=== PATIENT | male | born 1960 | race Caucasian/White ===

== ENCOUNTER → 2017-03-25 | Outpatient (CLI) | payer BC ==
[2013-10-06 06:16] VITALS: BP 137/84
[~2017-03-25] MED LIST: Aspirin PO; LISI2.5T PO; Metoprolol Tartrate PO; PRED-220 PO; PRED20TA PO
--- NOTE | 2017-03-25 14:10 | KCIC ---
Indication: COPD and shortness of air with right clavicle fracture. Time of exam 1:40 PM No prior studies are available for comparison. The heart size is normal. There is a calcified granuloma in the left lower lobe. Otherwise the lungs are clear. No effusion or pneumothorax is seen. IMPRESSION: No acute cardiopulmonary process is detected. Electronically signed by: Jorge Yousif MD (03/25/2017 2:07 PM) [id number]
--- NOTE | 2017-03-25 14:11 | KCIC ---
Indication: COPD and shortness of air. Time of exam 1:42 PM 2 views right clavicle demonstrate normal acromioclavicular alignment. There are hypertrophic changes at the acromioclavicular joint consistent with degenerative change. No fracture is identified. IMPRESSION: Degenerative changes. No acute bony abnormality is detected. Electronically signed by: Jorge Yousif MD (03/25/2017 2:08 PM) [id number]
== END | disposition home or self-care (01) ==
LOC: KCIC 13:19
PROVIDERS: ATTEND Family Medicine
DX: S42.001A Fracture of unspecified part of right clavicle, initial encounter for closed fracture (principal); J44.9 Chronic obstructive pulmonary disease, unspecified; M19.011 Primary osteoarthritis, right shoulder; J84.10 Pulmonary fibrosis, unspecified; X58.XXXA Exposure to other specified factors, initial encounter; Y93.89 Activity, other specified; Y92.89 Other specified places as the place of occurrence of the external cause; Y99.8 Other external cause status
CPT/HCPCS: 71020; 73000

== ENCOUNTER → 2020-06-30 | Outpatient (CLI) | payer MEDICARE ==
[2020-05-21 14:12] VITALS: BP 114/74
[~2020-06-30] MED LIST changes: +AZIT1PAC PO; +METF500T16 PO; +METH4TAB2 PO; +SIMV20TA18 PO
--- NOTE | 2020-06-30 17:07 | CARD ---
MR#: [id number] Date of Study: 06/30/2020 Ordering Physician: ROMULO CRUZ, Referring Physician: ROMULO CRUZ, Tech: Radha Elias [facility] APPROVED REPORT EXAM: Two-dimensional and M-mode echocardiogram with Doppler and color Doppler. Other Information Quality : AverageHR: 81bpm Rhythm : NSR INDICATION COPD RISK FACTORS Hypertension Obesity Smoking 2D DIMENSIONS RVDd3.6 (2.9-3.5cm)Left Atrium(2D)2.6 (1.6-4.0cm) IVSd1.2 (0.7-1.1cm)Aortic Root(2D)3.8 (2.0-3.7cm) LVDd3.1 (3.9-5.9cm)LVOT Diameter2.5 (1.8-2.4cm) PWd1.2 (0.7-1.1cm)LVDs1.7 (2.5-4.0cm) FS (%) 43.8 %SV28.5 ml Aortic Valve AoV Peak Jostin.162.5cm/sAoV VTI25.4cm AO Peak GR.10.6mmHgLVOT Peak Jostin.164.8cm/s AO Mean GR.5mmHgAVA (VMAX)4.81cm2 Mitral Valve MV E Qldlujkf84.6cm/sMV DECEL [id number] MV A Wvcjsake48.1cm/sE/A Ratio0.8 LEFT VENTRICLE The left ventricle is normal size. There is borderline to mild concentric left ventricular hypertroph y. The left ventricular systolic function is normal and the ejection fraction is within normal range. Estimated ejection fraction 60-65%. There is normal LV segmental wall motion. Transmitral Doppler f low pattern is Grade I-abnormal relaxation pattern. RIGHT VENTRICLE The right ventricle is normal size. The right ventricle is mildly hypertrophied. The right ventricula r systolic function is normal. ATRIA The left atrium size is normal. The right atrium size is normal. The interatrial septum is intact wit h no evidence for an atrial septal defect or patent foramen ovale as noted on 2-D or Doppler imaging. AORTIC VALVE The aortic valve is normal in structure and function. Doppler and Color Flow revealed no significant aortic regurgitation. There is no significant aortic valvular stenosis. MITRAL VALVE The mitral valve is normal in structure and function. There is no evidence of mitral valve prolapse. There is no mitral valve stenosis. Doppler and Color Flow revealed trace mitral valve regurgitation. TRICUSPID VALVE The tricuspid valve is normal in structure and function. Doppler and Color Flow revealed no tricuspid valve regurgitation noted. There is no tricuspid valve stenosis. PULMONIC VALVE The pulmonary valve is normal in structure and function. Doppler and Color Flow revealed no pulmonic valvular regurgitation. GREAT VESSELS The aortic root is mildly enlarged. The ascending aorta is mildly dilated. The IVC is normal in size and collapses >50% with inspiration. PERICARDIAL EFFUSION There is no evidence of significant pericardial effusion. Critical Notification Critical Value: No <Conclusion> The left ventricle is normal size. The left ventricular systolic function is normal and the ejection fraction is within normal range. Estimated ejection fraction 60-65%. There is borderline to mild concentric left ventricular hypertrophy. Doppler and Color Flow revealed no significant aortic regurgitation. There is no significant aortic valvular stenosis. Doppler and Color Flow revealed trace mitral valve regurgitation. Doppler and Color Flow revealed no tricuspid valve regurgitation noted. The aortic root is mildly enlarged. Signed by : Romulo Cruz MD Electronically Approved : 06/30/2020 17:07:19
== END ==
LOC: ECHO 13:47
PROVIDERS: ATTEND Internal Medicine Cardiovascular Disease
DX: I51.7 Cardiomegaly (principal); B94.8 Sequelae of other specified infectious and parasitic diseases
CPT/HCPCS: 93306

== ENCOUNTER → 2020-09-26 | Outpatient (CLI) | payer MEDICARE ==
[2020-05-21 14:12] VITALS: BP 114/74
--- NOTE | 2020-09-26 10:35 | RAD ---
EXAMINATION: CT Chest Without IV contrast. INDICATION:59 years, Male, nodular infiltrates. COMPARISON: 05/18/2020. TECHNIQUE: Spiral CT was obtained from the jugular notch through the posterior costophrenic recess. 3 -D MIPS, sagittal and coronal reformats were obtained. Exposure: One or more of the following individualized dose reduction techniques were utilized for thi s examination: 1. Automated exposure control 2. Adjustment of the mA and/or kV according to patient size 3. Use of iterative reconstruction technique. FINDINGS: LUNGS/PLEURA: Central airways are patent. Moderate to severe centrilobular and paraseptal emphysema, particularly in the upper lobes. Similar irregular nodular opacity in the lingula. Subsegmental atele ctasis versus scarring in the right middle lobe. No focal consolidation. No pneumothorax or pleural e ffusion. No suspicious pulmonary nodule. Calcified granuloma in the left lower lobe. MEDIASTINUM: No pathologic mediastinal or hilar adenopathy. Few calcified mediastinal and left hilar lymph nodes. The thoracic aorta and pulmonary arteries are normal in caliber. The heart is normal in size. No pericardial effusion. Moderate calcified coronary atherosclerosis. There is a 0.9 cm hypoden se nodule in the right thyroid lobe. Diffuse esophageal wall thickening may relate to reflux esophagi tis. Additional, nodular wall thickening of the posterior mid thoracic esophagus at the level of aaron na measures approximately 1.0 cm in thickness. (Series 2 image 35). AXILLA/SOFT TISSUE: No supraclavicular or axillary adenopathy. Regional soft tissues are within harish l limits. UPPER ABDOMEN: Calcified granulomas in the spleen and liver. BONES: No evidence of acute fractures or aggressive osseous lesions. Similar mild chronic compression fracture of T12 vertebral body. Mild degenerative changes in the spine. IMPRESSION: 1. Unchanged irregular nodular opacity in the lingula, favors to represent scarring. No suspicious pu lmonary nodule. 2. Moderate to severe pulmonary emphysema. 3. Diffuse esophageal wall thickening, may relate to reflux esophagitis. Additional, nodular wall thi ckening of the posterior mid thoracic esophagus at the level of the mindy, indeterminate. Differenti al includes atypical fold, Leiomyoma or malignancy. Recommend further evaluation with upper GI endosc opy. Electronically signed by: Maninder Rico MD (09/26/2020 10:33 AM) [id number]
== END ==
LOC: CT 09:32
PROVIDERS: ATTEND Internal Medicine Pulmonary Disease
DX: J43.9 Emphysema, unspecified (principal)
CPT/HCPCS: 71250

== ENCOUNTER 2021-04-09 09:34 | Emergency (ER) | payer MEDICARE ==
[~2021-04-09] VITALS: Ht 170.2 cm; Wt 105.4 kg
[~2021-04-09 09:34] MED LIST changes: -LISI2.5T PO; +LISI2.5T12 PO
[2021-04-09] MEDS ORDERED: IPRATRPIUM/ALBUTEROL 0.5/2.5MG 3 ML NEBU. NEB ONE (10:00)
[2021-04-09 10:03] LABS: BASO % 1 % (0-3); EOS # 0.4 x10^3/uL (0.0-0.7); EOS % 5 % (0-3); HEMATOCRIT 43.6 % (39.0-53.0); HEMOGLOBIN 14.4 g/dL (13.0-17.5); LYMPH # 1.2 x10^3/uL (1.0-4.8); LYMPH % 19 % (24-48); MEAN CORPUSCULAR HEMOGLOBIN 32 pg (25-35); MEAN CORPUSCULAR HGB CONC 33 g/dL (31-37); MEAN CORPUSCULAR VOLUME 98 fL (79-100); MONO # 0.7 x10^3/uL (0.0-1.1); MONO % 10 % (0-9); NEUT # 4.3 x10^3/uL (1.8-7.7); NEUT % 65 % (31-73); PLATELET COUNT 204 x10^3/uL (140-400); RED BLOOD COUNT 4.46 x10^6/uL (4.30-5.70); RED CELL DISTRIBUTION WIDTH 14.3 % (11.5-14.5); WHITE BLOOD COUNT 6.5 x10^3/uL (4.0-11.0)
--- NOTE | 2021-04-09 10:13 | PHYS DOC ---
Past Medical History Past Medical History: CHF, COPD, Diabetes-Type II, Hypertension Past Surgical History: No Surgical History Smoking Status: Former Smoker Additional Information: quit smoking 2013 Alcohol Use: None Drug Use: None General Adult EDM: Chief Complaint: SHORTNESS OF BREATH HPI: HPI: Patient is a 60-year-old male presents to the emergency department via EMS with chief complaint of cough and shortness of breath over the past 3 days. Patient reports his main concern is a family member in his home is tested positive for the flu virus, he has not had a flu vaccine this year and worried she may have the flu. Patient denies fever or chills. Denies chest pains. Reports cough is nonproductive, denies nausea vomiting or diarrhea. Patient denies nasal mary estion. Patient denies dizziness or syncopal episodes. Patient does report using his albuterol MDI more often over the past 3 days that he usually does. Patient reports he is always short of breath and is unable to articulate their concern if he is more short of breath than usual. Patient is on 2 L of oxygen per nasal cannula at all times at home, EMS spray painter noted sat of 88% on scene and increased O2 administration to 4 L per nasal cannula. Patient reports 28-year-old having the Covid virus in April of this year however has been vaccinated since then. Patient denies other physical complaints or physical concerns. Patient reports history of cigarette smoking, quit in 2013 Review of Systems: Review of Systems: 14 body systems of review of systems have been reviewed. See HPI for pertinent positives and negative responses, otherwise all other systems are negative, nonpertinent or noncontributory. Constitutional: Negative except as outlined in HPI above. Skin: Negative except as outlined in HPI above. Eyes: Negative except as outlined in HPI above. HENT: Negative except as outlined in HPI above. Respiratory: Negative except as outlined in HPI above. Cardiovascular: Negative except as outlined in HPI above. GI: Negative except as outlined in HPI above. : Negative except as outlined in HPI above. Musculoskeletal: Negative except as outlined in HPI above. Integument: Negative except as outlined in HPI above. Neurologic: Negative except as outlined in HPI above. Endocrine: Negative except as outlined in HPI above. Lymphatic: Negative except as outlined in HPI above. Psychiatric: Negative except as outlined in HPI above. Heart Score: C/O Chest Pain: No Risk Factors: Risk Factors: DM, Current or recent (<one month) smoker, HTN, HLP, family history of CAD, obesity. Risk Scores: Score 0 - 3: 2.5% MACE over next 6 weeks - Discharge Home Score 4 - 6: 20.3% MACE over next 6 weeks - Admit for Clinical Observation Score 7 - 10: 72.7% MACE over next 6 weeks - Early Invasive Strategies Current Medications: Current Medications Medications (Trade) Dose Ordered Sig/Padmini Start Time Stop Time Status Last Admin Dose Admin Albuterol/ Ipratropium (Duoneb) 3 ml 1X ONCE 04/09/21 10:00 04/09/21 10:01 DC Allergies: Allergies: Allergies Coded Allergies Type Severity Reaction Last Updated Verified No Known Drug Allergies 04/09/21 No Physical Exam: PE: Constitutional: Well developed, well nourished, no acute distress, non-toxic appearance. 60-year-old male in no apparent distress. Currently on 4 L nasal cannula. HENT: Normocephalic, atraumatic. Oropharynx pink, moist, no deep tissue infectious process appreciated, bilateral TMs intact within normal limits, no lymphadenopathy of the head or neck appreciated, patient speaking in normal voice tones. Eyes: Conjunctiva normal, no discharge. Neck: Normal range of motion, no stridor. Cardiovascular: No cyanosis appreciated, distal cap refill less than 2 seconds. Lungs & Thorax: Patient is in no respiratory distress, no audible adventitious lung sounds appreciated. Lung sounds clear bilateral upper lobes, diminished lung sounds bilateral lower lobes per auscultation. Patient does have a bronchial vesicular sounds with cough. Abdomen: Nontender, no abnormalities noted. Skin: Warm, dry, no erythema, no rash. Back: No tenderness, no deformities. Extremities: No tenderness, no cyanosis, no clubbing, ROM intact, no edema. Neurologic: Alert and oriented X 3, normal motor function, normal sensory function, no focal deficits noted. Psychologic: Affect normal, judgement normal, mood normal. Current Patient Data: Labs: Laboratory Tests Test 04/09/21 09:40 04/09/21 09:50 White Blood Count 6.5 x10^3/uL Red Blood Count 4.46 x10^6/uL Hemoglobin 14.4 g/dL Hematocrit 43.6 % Mean Corpuscular Volume 98 fL Mean Corpuscular Hemoglobin 32 pg Mean Corpuscular Hemoglobin Concent 33 g/dL Red Cell Distribution Width 14.3 % Platelet Count 204 x10^3/uL Neutrophils (%) (Auto) 65 % Lymphocytes (%) (Auto) 19 % Monocytes (%) (Auto) 10 % Eosinophils (%) (Auto) 5 % Basophils (%) (Auto) 1 % Neutrophils # (Auto) 4.3 x10^3/uL Lymphocytes # (Auto) 1.2 x10^3/uL Monocytes # (Auto) 0.7 x10^3/uL Eosinophils # (Auto) 0.4 x10^3/uL Basophils # (Auto) 0.0 x10^3/uL D-Dimer (Michell) 0.41 ug/mlFEU Sodium Level 144 mmol/L Potassium Level 4.6 mmol/L Chloride Level 101 mmol/L Carbon Dioxide Level 38 mmol/L Anion Gap 5 Blood Urea Nitrogen 27 mg/dL Creatinine 1.4 mg/dL Estimated GFR (Cockcroft-Gault) 51.4 BUN/Creatinine Ratio 19 Glucose Level 133 mg/dL Lactic Acid Level 0.9 mmol/L Calcium Level 9.1 mg/dL Phosphorus Level 3.3 mg/dL Magnesium Level 1.8 mg/dL Total Bilirubin 0.2 mg/dL Aspartate Amino Transf (AST/SGOT) 25 U/L Alanine Aminotransferase (ALT/SGPT) 31 U/L Alkaline Phosphatase 74 U/L Troponin I High Sensitivity 14 ng/L HA-Joa-A-Type Natriuretic Peptide 43 pg/mL Total Protein 7.4 g/dL Albumin 3.2 g/dL Albumin/Globulin Ratio 0.8 Influenza Type A Antigen Negative Influenza Type B Antigen Negative SARS-CoV-2 Antigen (Rapid) Negative Current Medications Medications (Trade) Dose Ordered Sig/Padmini Route PRN Reason Start Time Stop Time Status Last Admin Dose Admin Albuterol/ Ipratropium (Duoneb) 3 ml 1X ONCE NEB 04/09/21 10:00 04/09/21 10:01 DC 04/09/21 10:19 Methylprednisolone Sodium Succinate (SOLU-Medrol 125MG VIAL) 125 mg 1X ONCE IV 04/09/21 10:45 04/09/21 10:46 DC 04/09/21 11:07 Albuterol Sulfate (Ventolin Neb Soln) 10 mg 1X ONCE CONT NEB 04/09/21 11:45 04/09/21 11:46 DC 04/09/21 11:49 Laboratory Tests Test 04/09/21 09:40 04/09/21 09:50 White Blood Count 6.5 x10^3/uL Red Blood Count 4.46 x10^6/uL Hemoglobin 14.4 g/dL Hematocrit 43.6 % Mean Corpuscular Volume 98 fL Mean Corpuscular Hemoglobin 32 pg Mean Corpuscular Hemoglobin Concent 33 g/dL Red Cell Distribution Width 14.3 % Platelet Count 204 x10^3/uL Neutrophils (%) (Auto) 65 % Lymphocytes (%) (Auto) 19 % Monocytes (%) (Auto) 10 % Eosinophils (%) (Auto) 5 % Basophils (%) (Auto) 1 % Neutrophils # (Auto) 4.3 x10^3/uL Lymphocytes # (Auto) 1.2 x10^3/uL Monocytes # (Auto) 0.7 x10^3/uL Eosinophils # (Auto) 0.4 x10^3/uL Basophils # (Auto) 0.0 x10^3/uL D-Dimer (Michell) 0.41 ug/mlFEU Sodium Level 144 mmol/L Potassium Level 4.6 mmol/L Chloride Level 101 mmol/L Carbon Dioxide Level 38 mmol/L Anion Gap 5 Blood Urea Nitrogen 27 mg/dL Creatinine 1.4 mg/dL Estimated GFR (Cockcroft-Gault) 51.4 BUN/Creatinine Ratio 19 Glucose Level 133 mg/dL Lactic Acid Level 0.9 mmol/L Calcium Level 9.1 mg/dL Phosphorus Level 3.3 mg/dL Magnesium Level 1.8 mg/dL Total Bilirubin 0.2 mg/dL Aspartate Amino Transf (AST/SGOT) 25 U/L Alanine Aminotransferase (ALT/SGPT) 31 U/L Alkaline Phosphatase 74 U/L Troponin I High Sensitivity 14 ng/L OZ-Hls-M-Type Natriuretic Peptide 43 pg/mL Total Protein 7.4 g/dL Albumin 3.2 g/dL Albumin/Globulin Ratio 0.8 Influenza Type A Antigen Negative Influenza Type B Antigen Negative SARS-CoV-2 Antigen (Rapid) Negative Current Medications Medications (Trade) Dose Ordered Sig/Padmini Route PRN Reason Start Time Stop Time Status Last Admin Dose Admin Albuterol/ Ipratropium (Duoneb) 3 ml 1X ONCE NEB 04/09/21 10:00 04/09/21 10:01 DC 04/09/21 10:19 Methylprednisolone Sodium Succinate (SOLU-Medrol 125MG VIAL) 125 mg 1X ONCE IV 04/09/21 10:45 04/09/21 10:46 DC 04/09/21 11:07 Albuterol Sulfate (Ventolin Neb Soln) 10 mg 1X ONCE CONT NEB 04/09/21 11:45 04/09/21 11:46 DC 04/09/21 11:49 Laboratory Tests Test 04/09/21 09:40 White Blood Count 6.5 x10^3/uL (4.0-11.0) Red Blood Count 4.46 x10^6/uL (4.30-5.70) Hemoglobin 14.4 g/dL (13.0-17.5) Hematocrit 43.6 % (39.0-53.0) Mean Corpuscular Volume 98 fL (79-100) Mean Corpuscular Hemoglobin 32 pg (25-35) Mean Corpuscular Hemoglobin Concent 33 g/dL (31-37) Red Cell Distribution Width 14.3 % (11.5-14.5) Platelet Count 204 x10^3/uL (140-400) Neutrophils (%) (Auto) 65 % (31-73) Lymphocytes (%) (Auto) 19 % (24-48) L Monocytes (%) (Auto) 10 % (0-9) H Eosinophils (%) (Auto) 5 % (0-3) H Basophils (%) (Auto) 1 % (0-3) Neutrophils # (Auto) 4.3 x10^3/uL (1.8-7.7) Lymphocytes # (Auto) 1.2 x10^3/uL (1.0-4.8) Monocytes # (Auto) 0.7 x10^3/uL (0.0-1.1) Eosinophils # (Auto) 0.4 x10^3/uL (0.0-0.7) Basophils # (Auto) 0.0 x10^3/uL (0.0-0.2) Laboratory Tests 04/09/21 09:40 Vital Signs: Vital Signs Date Time Temp Pulse Resp B/P (MAP) Pulse Ox O2 Delivery O2 Flow Rate FiO2 04/09/21 09:39 99.4 86 20 128/73 (91) 98 Nasal Cannula 4.0 99.4 EKG: EKG: EKG performed at 1005 by ED nursing staff shows a sinus rhythm with right axis deviation, heart rate 82 bpm, DE interval 1.16, QT 0.374, patient exhibits chronic ST elevation in leads II, III and aVF, compared to previous EKG performed on 05/18/2020, no acute STEMI, no ACS, no acute ischemia appreciated, EKG interpreted by ED attending physician Dr. Samayoa. Radiology/Procedures: Radiology/Procedures: REASON: Short of breath PROCEDURE: CHEST AP ONLY EXAM: Chest, single view. HISTORY: Short of breath. COMPARISON: 09/26/2020 FINDINGS: A frontal view of the chest is obtained. There are chronic appearing interstitial changes. There is no consolidation, pleural effusion or pneumothorax. There is a stable cardiac silhouette. There are calcified granulomas. There is a chronic right clavicle fracture deformity. IMPRESSION: Chronic appearing interstitial changes. Electronically signed by: Lizette Albrecht MD (04/09/2021 10:13 AM) [facility] Course & Med Decision Making: Course & Med Decision Making Pertinent Labs and Imaging studies reviewed. (See chart for details) 60-year-old male, vital signs reviewed, presents to the emergency department concerning family member has the flu virus and is concerned he may have the flu virus. Physical presentation consistent with mild COPD exacerbation, will order EKG, CBC, CMP, mag, Phos, NT proBNP, troponin I high-sensitivity, chest x-ray, rapid flu and rapid Covid testing, Covid testing by PCR, DuoNeb treatment, IV corticosteroids. After period of time upon reevaluation of patient after DuoNeb treatment, mild I/E wheezing throughout all lung meyer, patient reports he is starting to feel better. Discussed with patient will order hour-long albuterol treatment and reevaluate, patient is amenable to ED planning. After period of time, lung sounds clear to auscultate all lung meyer, patient reports he is able to cough up sputum now, patient states he feels better and would like to go home, discussed with patient will prescribe oral steroid regimen for home use, discussed return to ER precautions and concerns, strict follow-up with primary care for ongoing symptoms, patient gave verbal understanding of and is amenable to ED discharge planning, discharge diagnosis COPD exacerbation. Discussed with the patient all findings and diagnostic testing as well as the need to follow-up with their primary care provider for further evaluation and treatment or return to the ED if any new or worsening symptoms. Strict return precautions were also discussed at length, the patient voiced understanding and agreement with the discharge planning. The patient was nontoxic in appearance, in no apparent distress, and hemodynamically stable at the time of disposition. Dragon Disclaimer: Dragon Disclaimer: This electronic medical record was generated, in whole or in part, using a voice recognition dictation system. Departure Departure Impression: Primary Impression: COPD exacerbation Disposition: HOME / SELF CARE / HOMELESS Condition: GOOD Referrals: TRISHA QUINN (PCP) Patient Instructions: Chronic Obstructive Pulmonary Disease Exacerbation Additional Instructions: You were seen here today for increased shortness of breath with cough. You were also concerned you may have contracted the flu virus. Your rapid flu was negative today in the emergency department, your rapid Covid testing is also negative, is unlikely to have the COVID-19 virus however there is a additional Covid test per PCR pending in the lab, this takes approximately 48 hours to result. Your presentation was concerning for a COPD exacerbation, you were treated with steroids and breathing treatments, this turned you around and you are now able to cough up your secretions, he has stated you feel better. As we discussed I am prescribing you an oral steroid regimen, please take as directed until complete, please return to the emergency department for worsening symptoms or other concerns, follow-up with your primary care physician this coming week for reexamination of your COPD. Thank you for visiting our Emergency Department. It was a pleasure taking care of you today in the emergency department and we appreciate you trusting us with your care. If any additional problems come up don't hesitate to return to visit us. Please follow up with your primary care provider so they can plan additional care if needed and know about the problem that you had. If symptoms worsen come back to the Emergency Department. Any concerning symptoms that start such as chest pain, shortness of air, weakness or numbness on one side of the body, running high fevers or any other concerning symptoms return to the ER. EMERGENCY DEPARTMENT GENERAL DISCHARGE INSTRUCTIONS Thank you for coming to [facility] Emergency Department (ED) today and trusting us with you care. We trust that you had a positive experience in our Emergency Department. If you wish to speak to the department management, you may call the Director at [phone]. YOUR FOLLOW UP INSTRUCTIONS ARE FOLLOWS: 1. Do you have a private Doctor? If you do not have a private doctor, please ask for a resource list of physicians or clinics that may be able to assist you with follow up care. 2. The Emergency Physicain has interpreted your x-rays. The X-Ray specialist will also review them. If there is a change in the findings, you will be notified in 48 hours when at all possible. 3. A lab test or culture has been done, your results will be reviewed and you will be notified if you need a change in treatment. ADDITIONAL INSTRUCTIONS AND INFORMATION: 1. Your care today has been supervised by a physician who is specially trained in emergency care. Many problems require more than one evaluation for a complete diagnosis and treatment. We recommend that you schedule your follow up appointment as recommended to ensure complete treatment of you illness or injury. If you are unable to obtain follow up care and continue to have a problem, or if your condition worsens, we recommend that you return to the ED. 2. We are not able to safely determine your condition over the phone nor are we able to give sound medical advice over the phone. For these safety reasons, if you call for medical advice we will ask you to come to the ED for further evaluation. 3. If you have any questions regarding these discharge instructions please call the ED at [phone]. SAFETY INFORMATION: In the interest of safety, wellness, and injury prevention; we encourage you to wear your sealbelt, if you smoke; quite smoking, and we encourage family to use a protective helmet for bicycling and other sporting events that present an increased risk for head injury. IF YOUR SYMPTOMS WORSEN OR NEW SYMPTOMS DEVELOP, OR YOU HAVE CONCERNS ABOUT YOUR CONDITION; OR IF YOUR CONDITION WORSENS WHILE YOU ARE WAITING FOR YOUR FOLLOW UP APPOINTMENT; EITHER CONTACT YOUR PRIMARY CARE DOCTOR, THE PHYSICIAN WHOSE NAME AND NUMBER YOU WERE GIVEN, OR RETURN TO THE ED IMMEDIATELY. Scripts Prednisone (PREDNISONE) 20 Mg Tablet 1 TAB PO DAILY for COPD exacerbation, #16 TAB 0 Refills Take 3 tablets on day 1, 2 tablets each day on days 2 through 5, then 1 tablet each day until complete. Prov: JEROD BLANCHARD APRN 04/09/21 JEROD BLANCHARD APRN Apr 09, 2021 10:13
[2021-04-09 10:17] LABS: CALCIUM 9.1 mg/dL (8.5-10.1); CREATININE 1.4 mg/dL (0.7-1.3); GFR 51.4; POTASSIUM 4.6 mmol/L (3.5-5.1)
[2021-04-09 10:22] LABS: ALBUMIN 3.2 g/dL (3.4-5.0); ALBUMIN/GLOBULIN RATIO 0.8 (1.0-1.7); MAGNESIUM 1.8 mg/dL (1.8-2.4); PHOSPHORUS 3.3 mg/dL (2.6-4.7); TOTAL BILIRUBIN 0.2 mg/dL (0.2-1.0); TOTAL PROTEIN 7.4 g/dL (6.4-8.2)
[2021-04-09 10:32] LABS: INFLUENZA A PATIENT NEGATIVE (NEGATIVE); INFLUENZA B PATIENT NEGATIVE (NEGATIVE)
[2021-04-09] MEDS ORDERED: methylPREDNISolone SOD SUCC PF 125 MG/2 ML VIAL. IV ONE (10:45)
[2021-04-09] MEDS ORDERED: ALBUTEROL SULFATE 2.5 MG/3 ML NEBU. CONT NEB ONE (11:45)
--- NOTE | 2021-04-09 12:05 | EKG ---
[facility] [address] [place] [address] Test Date: 2021-04-09 Test Time: 09:51:43 Pat Name: TRISHA WELDON Department: Room: Gender: M Machine Etcher: : 1960 Requested By: JEROD BLANCHARD Order Number: [id number] Reading MD: Measurements Intervals [place] Rate: 84 P: -37 NH: 156 QRS: 107 QRSD: 82 T: 43 QT: 314 QTc: 374 Interpretive Statements SINUS RHYTHM R-S TRANSITION ZONE IN V LEADS DISPLACED TO THE LEFT LOW LIMB LEAD VOLTAGE ST & T ABNORMALITY, CONSIDER RECENT INFERIOR MYOCARDIAL OR PERICARDIAL DAMAGE ABNORMAL ECG RI6.02 No previous ECG available for comparison
[2021-04-09] MEDS ORDERED: PRED20TA PO (13:18)
[2021-04-09 14:38] VITALS: BP 150/66
--- NOTE | 2021-04-09 18:07 | EKG ---
[facility] [address] [place] [address] Test Date: 2021-04-09 Test Time: 10:05:21 Pat Name: TRISHA WELDON Department: Room: Gender: M [employer]: : 1960 Requested By: OTONIEL BLACKMON Order Number: [id number] Reading MD: Measurements Intervals [place] Rate: 82 P: MT: QRS: 118 QRSD: 82 T: 44 QT: 318 QTc: 374 Interpretive Statements IRREGULAR RHYTHM, NO P-WAVE FOUND ABNORMAL RIGHT AXIS DEVIATION R-S TRANSITION ZONE IN V LEADS DISPLACED TO THE LEFT LOW LIMB LEAD VOLTAGE ST & T ABNORMALITY, CONSIDER RECENT INFERIOR MYOCARDIAL OR PERICARDIAL DAMAGE ABNORMAL ECG RI6.02 Compared to ECG 04/09/2021 09:51:43 Right-axis deviation now present Sinus rhythm no longer present T-wave abnormality still present
--- NOTE | 2021-04-10 16:26 | NUR ---
IP: Attempted to contact pt concerning covid results. No answer, left a voicemail to return the call.
== END 2021-04-09 14:38 | disposition home or self-care (01) ==
LOC: ER 09:34
DX: J44.1 Chronic obstructive pulmonary disease with (acute) exacerbation (principal); Z20.822 Contact with and (suspected) exposure to COVID-19; I11.0 Hypertensive heart disease with heart failure; I50.9 Heart failure, unspecified; Z87.891 Personal history of nicotine dependence
CPT/HCPCS: 36415; 71045; 80053; 83605; 83735; 83880; 84100; 84484; 85025; 85379; 87040; 87205; 87426; 87804; 93005; 94640; 94644; 96374; 99285; J2930; J7613; U0003; U0005; 87077